=== PATIENT | male | born 1980 | race Caucasian/White ===

== ENCOUNTER 2021-10-04 19:11 | Emergency (ER) | payer MEDICAID | END 2021-10-04 20:15 | disposition home or self-care (01) | LOC: FB.ED 19:11 | DX: J11.1 Influenza due to unidentified influenza virus with other respiratory manifestations (principal) | CPT/HCPCS: 99283 ==

== ENCOUNTER 2022-10-29 20:57 | Emergency (ER) | payer MEDICAID ==
[2022-10-29] MEDS ORDERED: Morphine 4 MG/ML VIAL IVPUSH ONE (21:39)
[2022-10-29] MEDS ORDERED: Ondansetron 4 MG/2 ML SDV IVPUSH ONE (21:39)
[2022-10-29] MEDS ORDERED: Sodium Chloride 0.9% 10 ML Syringe FLUSH PRN (21:42)
[2022-10-29] MEDS ORDERED: Sodium Chloride 0.9% 1,000 ML IV SCH ×2 (21:45→23:45)
[2022-10-29] MEDS ORDERED: Iopamidol 755 Mg/ML 100 ML Bottle IV ONE (22:04)
[2022-10-29 22:35] LABS: ESTIMATED GFR 111 mL/min (>60)
[2022-10-29] MEDS ORDERED: Ondansetron 4 MG/2 ML SDV IVPUSH PRN (23:33)
[2022-10-30] MEDS: Piperacillin/Tazobactam 3.375 GM in Sodium Chloride 0.9% 50 ML IV SCH ×3 (00:28→12:25)
[2022-10-30] MEDS: Morphine 2 MG/ML SYRINGE IVPUSH PRN ×2 (02:35→06:54)
[2022-10-30 06:24] LABS: ESTIMATED GFR 111 mL/min (>60)
== END 2022-10-30 13:06 ==
LOC: FB.ED 20:57
DX: K56.609 Unspecified intestinal obstruction, unspecified as to partial versus complete obstruction (principal); K65.1 Peritoneal abscess; E87.1 Hypo-osmolality and hyponatremia
CPT/HCPCS: 36415; 74018; 74177; 80048; 80053; 81001; 82150; 83605; 83690; 85025; 96361; 96365; 96375; 96376; 99285; J2270; J2405; J2543; J3490; J7030; Q9967; 43752

== ENCOUNTER 2022-12-06 12:32 | Emergency (ER) | payer MEDICAID ==
[2022-12-06] MEDS ORDERED: Sodium Chloride 0.9% 10 ML Syringe FLUSH PRN (13:02)
[2022-12-06] MEDS ORDERED: Morphine 4 MG/ML VIAL IVPUSH ONE (13:03)
[2022-12-06] MEDS ORDERED: Ondansetron 4 MG/2 ML SDV IVPUSH ONE (13:03)
[2022-12-06] MEDS ORDERED: Sodium Chloride 0.9% 1,000 ML IV SCH (13:15)
[2022-12-06 13:29] LABS: ESTIMATED GFR 98 mL/min (>60)
[2022-12-06] MEDS ORDERED: Iopamidol 755 Mg/ML 100 ML Bottle IV ONE (13:45)
== END 2022-12-06 17:23 | disposition home or self-care (01) ==
LOC: FB.ED 12:32
DX: R10.32 Left lower quadrant pain (principal); R10.13 Epigastric pain; G89.29 Other chronic pain; R11.2 Nausea with vomiting, unspecified; Z85.038 Personal history of other malignant neoplasm of large intestine; Z93.3 Colostomy status; Z79.899 Other long term (current) drug therapy
CPT/HCPCS: 36415; 74177; 80053; 82150; 83690; 85025; 96361; 96374; 96375; 99284; J2270; J2405; J7030; Q9967